=== PATIENT | female | born 1955 | race Caucasian/White ===

== ENCOUNTER 2022-10-25 08:15 | Outpatient (RCR) | payer MEDICARE, SELFPAY ==
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
== END 2023-02-22 23:59 | disposition home or self-care (01) ==
PROVIDERS: PCP Emergency Medicine; Visit Provider Emergency Medicine
DX: M53.3 Sacrococcygeal disorders, not elsewhere classified (principal); Z51.89 Encounter for other specified aftercare
CPT/HCPCS: 97032; 97110; 97140; 97161; 97164

== ENCOUNTER 2022-11-25 09:56 | Outpatient (CLI) | payer MEDICARE, OTHER, SELFPAY | END 2022-11-25 09:57 | disposition home or self-care (01) | LOC: NFLDREF 11-26 07:55 | PROVIDERS: PCP Emergency Medicine; Referring Provider Emergency Medicine; Visit Provider Emergency Medicine | DX: Z00.00 Encounter for general adult medical examination without abnormal findings (principal); M81.0 Age-related osteoporosis without current pathological fracture; E55.9 Vitamin D deficiency, unspecified; Z13.6 Encounter for screening for cardiovascular disorders | CPT/HCPCS: 80053; 80061; 82306 ==

== ENCOUNTER 2024-04-05 09:13 | Outpatient (CLI) | payer MEDICARE, SELFPAY | END 2024-04-05 09:14 | disposition home or self-care (01) | PROVIDERS: PCP Emergency Medicine; Referring Provider Emergency Medicine; Visit Provider Emergency Medicine | DX: M81.8 Other osteoporosis without current pathological fracture (principal); I44.7 Left bundle-branch block, unspecified; E55.9 Vitamin D deficiency, unspecified; Z13.220 Encounter for screening for lipoid disorders | CPT/HCPCS: 80053; 80061; 82306 ==

== ENCOUNTER 2024-12-19 15:29 | Outpatient (CLI) | payer MEDICARE, OTHER, SELFPAY ==
--- NOTE | 2024-12-19 15:00 | CRLHL7_ITS ---
For Patients: As a result of the Century Cures Act, medical imaging exams and procedure reports are released immediately into your electronic medical record. You may view this report before your referring provider. If you have questions, please contact your health care provider. DXA BONE MINERAL DENSITY STUDY Reason for exam: Osteopenia. Current height (in): 64. Weight (lb): 130. Menopause age: 43. Ethnicity: White. 1. Have you had a previous hip or vertebral fracture? No. 2. Have you had any fractures during your adult life which did not result from significant trauma (e.g., auto accident)? No. 3. Did either of your parents have a hip fracture? No. 4. Do you smoke? No. 5. Have you ever taken Glucocorticoids? Yes. 6. Do you have rheumatoid arthritis? No. 7. Do you have secondary osteoporosis? No. 8. Do you drink 3 or more alcoholic drinks per day? No. 9. Are you being treated for osteoporosis? Yes. 10. Have you ever taken any of the following medications: Actonel, Evista, Fosamax, Miacalcin, Reclast, Boniva, Forteo, HRT (i.e. estrogen/hormone therapy), Protelos, Prolia, Vitamin D, Calcium, other ??? please specify. ANSWER: Yes, Fosamax (i.e., alendronate), vitamin D, and calcium. 11. Do you have any of the following medical conditions: Anorexia or bulimia, asthma or emphysema, end stage renal disease, hyperparathyroidism, any seizure disorders, cancer, inflammatory bowel diseases, hysterectomy, other ??? please specify. ANSWER: Yes, cancer. 12. What was your maximum height (inches)? 64. 13. Do you perform weight bearing exercise regularly? Yes. 14. Do you regularly consume dairy products? Yes. 15. Do you drink caffeinated beverages? Yes. 16. At what age did your period start? 11. 17. Are you premenopausal? No. 18. How many full-term pregnancies have you had? 2. 19. Have you ever missed your period for more than 6 months in a row (not including or menopause)? No. TECHNIQUE: Bone mineral density study was performed using the Etable. FINDINGS: The results of the study expressed as bone mineral density (BMD) are as follows: Lumbar spine L1 to L3: BMD: 0.908 g/cm2. T-score: -1.0. Z-score: 1.1. Neck Left: BMD: 0.677 g/cm2. T-score: -1.5. Z-score: 0.3. Right: BMD: 0.616 g/cm2. T-score: -2.1. Z-score: -0.2. Total Left: BMD: 0.813 g/cm2. T-score: -1.1. Z-score: 0.5. Right: BMD: 0.795 g/cm2. T-score: -1.2. Z-score: 0.4. IMPRESSION: Osteopenia. *Comparison exams done prior to 09/2019 were performed on different unit, [employer]. Carlos Marks M.D. Diagnostic Radiologist [email or web address] ROSCOE/christelle bourgeois/Dictated by: Carlos Marks MD @ 12/20/2024 8:23:00 AM (Electronically Signed)
== END 2024-12-19 15:30 | disposition home or self-care (01) ==
LOC: RAD 15:30
PROVIDERS: PCP Emergency Medicine; Visit Provider Physician Assistant Medical
DX: M85.80 Other specified disorders of bone density and structure, unspecified site (principal); M85.89 Other specified disorders of bone density and structure, multiple sites; M81.0 Age-related osteoporosis without current pathological fracture
CPT/HCPCS: 77080